=== PATIENT | male | born 1950 | race Two or more races ===

== ENCOUNTER 2018-06-08 06:25 | Outpatient (CLI) | payer OTHER ==
[~2018-06-08 06:25] MED LIST: AMLODIPINE 10MG; ASA81 MG; CENTRUM CH1 TAB.CHEW; LOSARTAN-HCTZ1 EAC2; NABUMETONE500 MG PO; OMEGA 3-6-9 CO400 MG; PERCOCET 5/3251 TAB PO; VITAMINA D
== END 2018-06-08 06:27 | disposition home or self-care (01) ==
LOC: LAB 06:25
DX: I10 Essential (primary) hypertension (principal); E78.4 Other hyperlipidemia; N40.0 Benign prostatic hyperplasia without lower urinary tract symptoms; Z12.11 Encounter for screening for malignant neoplasm of colon; R73.09 Other abnormal glucose

== ENCOUNTER 2018-06-08 07:30 | Outpatient (CLI) | payer OTHER | END 2018-06-08 08:04 | disposition home or self-care (01) | LOC: TOM 07:30 | DX: J32.0 Chronic maxillary sinusitis (principal); G51.0 Bell's palsy ==

== ENCOUNTER → 2018-09-26 06:13 | Outpatient (CLI) | payer OTHER | END | disposition home or self-care (01) | LOC: LAB 06:13 | DX: E78.2 Mixed hyperlipidemia (principal); M81.0 Age-related osteoporosis without current pathological fracture; M54.5 Low back pain; M25.562 Pain in left knee; M25.561 Pain in right knee ==

== ENCOUNTER 2019-07-18 07:05 | Outpatient (CLI) | payer OTHER | END 2019-07-18 07:10 | disposition home or self-care (01) | LOC: LAB 07:05 → RAD 07:05 → LAB 07:10 | DX: E66.01 Morbid (severe) obesity due to excess calories (principal); R73.09 Other abnormal glucose; I10 Essential (primary) hypertension; E03.8 Other specified hypothyroidism; F15.21 Other stimulant dependence, in remission; Z12.11 Encounter for screening for malignant neoplasm of colon; R97.20 Elevated prostate specific antigen [PSA]; E78.00 Pure hypercholesterolemia, unspecified; E55.9 Vitamin D deficiency, unspecified; D51.1 Vitamin B12 deficiency anemia due to selective vitamin B12 malabsorption with proteinuria ==

== ENCOUNTER 2019-12-31 10:55 | Outpatient (CLI) | payer OTHER | END 2020-01-01 15:44 | disposition home or self-care (01) | LOC: TOM 10:55 | DX: H90.3 Sensorineural hearing loss, bilateral (principal); H61.23 Impacted cerumen, bilateral; H70.13 Chronic mastoiditis, bilateral; J31.0 Chronic rhinitis ==

== ENCOUNTER 2020-08-13 10:08 | Outpatient (CLI) | payer OTHER | END 2020-08-13 10:21 | disposition home or self-care (01) | LOC: MRI 10:08 | PROVIDERS: ATTEND General Practice | DX: M47.817 Spondylosis without myelopathy or radiculopathy, lumbosacral region (principal); M54.41 Lumbago with sciatica, right side; I11.9 Hypertensive heart disease without heart failure; I70.0 Atherosclerosis of aorta; Z68.39 Body mass index [BMI] 39.0-39.9, adult; J30.1 Allergic rhinitis due to pollen; M51.37 Other intervertebral disc degeneration, lumbosacral region; L40.8 Other psoriasis; E78.2 Mixed hyperlipidemia; N52.8 Other male erectile dysfunction | CPT/HCPCS: 72148 ==

== ENCOUNTER 2024-10-26 13:26 | Emergency (ER) | payer OTHER ==
[~2024-10-26] VITALS: Ht 170.2 cm; Wt 114.3 kg
[2024-10-26] MEDS ORDERED: AVAPRO300 MG PO (14:08)
[2024-10-26] MEDS ORDERED: AMLODIPINE-OLM1 EAC3 PO (14:08)
[2024-10-26] MEDS ORDERED: ROSUVASTATIN CA20 MG PO (14:08)
== END 2024-10-26 15:55 | disposition home or self-care (01) ==
LOC: ER 13:28
DX: N50.3 Cyst of epididymis (principal); I10 Essential (primary) hypertension